=== PATIENT | female | born 1955 | race African-American/Black ===

== ENCOUNTER 2016-12-14 02:29 | Emergency (ER) | payer OTHER ==
[~2016-12-14] VITALS: Ht 162.6 cm; Wt 91.0 kg
[2016-12-14 02:35] VITALS: Ht 162.6 cm; Wt 91.0 kg
[2016-12-14] MEDS ORDERED: TRAM50TA2 PO (04:35)
[2016-12-14] MEDS ORDERED: IBUP-1542 PO (04:35)
[2016-12-14] MEDS ORDERED: CEPH-443 PO (04:35)
[2016-12-14] MEDS ORDERED: SULF1TAB31 PO (04:35)
--- NOTE | 2016-12-14 04:49 | ERD ---
ER Documentation Chief Complaint Date/Time DATE: 12/14/16 TIME: 04:42 Chief Complaint insect bite under left breast noted this evening, no fevers HPI 51-year-old female presents to emergency department for complaints of a bump in the left breast area started tonight. Patient states it may be an insect bite. Patient describes the pain as sharp pain, 4/10 scale, is worse upon touching the area. Patient denies any open wounds. Patient denies any fever or chills. Patient did not take any medications to help with symptoms. ROS All systems reviewed and are negative except as per history of present illness. Medications Home Meds Active Scripts Tramadol HCl (Tramadol HCl) 50 Mg Tablet, 50 MG PO Q6 Y for SEVERE PAIN LEVEL 7- 10, #20 TAB Prov:PEÑA COLBERT NP 12/14/16 Ibuprofen* (Motrin*) 600 Mg Tab, 600 MG PO Q6H Y for PAIN AND OR ELEVATED TEMP, #30 TAB Prov:PEÑA COLBERT NP 12/14/16 Cephalexin* (Keflex*) 500 Mg Capsule, 500 MG PO QID for 10 Days, CAP Prov:PEÑA COLBERT NP 12/14/16 Sulfamethoxazole/Trimethoprim* (Bactrim Ds* Tablet) 1 Each Tablet, 1 TAB PO BID , #20 TAB Prov:PEÑA COLBERT [employer] 12/14/16 Allergies Allergies: Coded Allergies: No Known Drug Allergies (Verified Allergy, Unknown, 12/14/16) PMhx/Soc Medical and Surgical Hx: pt denies Medical Hx, pt denies Surgical Hx FmHx Family History: No coronary disease, No diabetes, No other Physical Exam Vitals Vital Signs Date Time Temp Pulse Resp B/P Pulse Ox O2 Delivery O2 Flow Rate FiO2 12/14/16 02:35 98.0 87 20 164/84 98 Physical Exam GENERAL: The patient is well developed and appropriate for usual state of health, in no apparent distress. CHEST: Clear to auscultation bilaterally. There are no rales, wheezes or rhonchi. HEART: Regular rate and rhythm. No murmurs, clicks, rubs or gallops. No S3 or S4. ABDOMEN: Soft, nontender and nondistended. Good bowel sounds. No rebound or guarding. No gross peritonitis. No gross organomegaly or masses. No Gregg sign or McBurney point tenderness. BACK: No midline or flank tenderness. EXTREMITIES: Equal pulses bilaterally. There is no peripheral clubbing, cyanosis or edema. No focal swelling or erythema. Full range of motion. Grossly neurovascularly intact. NEURO: Alert and oriented. Cranial nerves 2-12 intact. Motor strength in all 4 extremities with 5/5 strength. Sensation grossly intact. Normal speech and gait. SKIN: 2 cm erythematous induration noted in the left lower lip area, nontender on palpation, no fluctuance noted. There is no apparent ecchymosis or petechia. The skin is warm and dry. HEMATOLOGIC AND LYMPHATIC: There is no evidence of excessive bruising or lymphedema. No gross cervical, axillary, or inguinal lymphadenopathy. Procedures/MDM Decision making: Patient symptoms like is consistent with a soft tissue abscesses, this time, it is not fluctuant, and does not need to be drained at this time. Patient has no symptoms of any nipple discharge, no gross deformity. No symptoms of any cellulitis at this time. No symptoms for sepsis at this time. Patient appears well and is hemodynamically stable. Patient was given prescription for Bactrim, Keflex, ibuprofen mild to moderate pain, tramadol for severe pain, is advised to follow-up with primary care doctor or any urgent care clinic in 2 days for reevaluation of symptoms, patient was advised to return to emergency department for any worsening symptoms. Departure Diagnosis: Primary Impression: Soft tissue abscess Condition: Stable Patient Instructions: Abscess, Antiobiotic Treatment Only PEÑA COLBERT NP December 14, 2016 04:49
== END 2016-12-14 04:57 | disposition home or self-care (01) ==
LOC: FTE 02:29
DX: N61.1 Abscess of the breast and nipple (principal)
CPT/HCPCS: 99284